=== PATIENT | male | born 1995 | race Caucasian/White ===

== ENCOUNTER 2024-01-31 00:52 | Emergency (ER) | payer SELFPAY ==
[~2024-01-31] VITALS: Ht 170.2 cm; Wt 69.0 kg
[2024-01-31 01:03] VITALS: BP 130/82; PULSE 69; RESP 16; TEMP 98; O2SAT 97
== END 2024-01-31 04:01 | disposition left against medical advice (07) ==
LOC: ER 00:52
DX: T78.40XA Allergy, unspecified, initial encounter (principal); Z53.21 Procedure and treatment not carried out due to patient leaving prior to being seen by health care provider; Y92.89 Other specified places as the place of occurrence of the external cause